=== PATIENT | male | born 1990 | race Caucasian/White ===

== ENCOUNTER 2021-05-17 17:52 | Emergency (ER) | payer OTHER ==
[~2021-05-17] VITALS: Ht 190.5 cm; Wt 106.1 kg
[2021-05-17 18:24] VITALS: BP 150/89
--- NOTE | 2021-05-17 19:04 | NUR ---
PT'S RIGHT PINKY TOE ISABEL TAPPED AND PT RIGHT FOOT PLACED IN ORTHO SHOE. PA NOTIFIED
[2021-05-17] MEDS ORDERED: IBUP-2213 PO (19:06)
[2021-05-17] MEDS ORDERED: BACI1PAC6 TP (19:08)
[2021-05-17] MEDS ORDERED: IBUPROFEN 600 MG TAB PO ONE (19:10)
--- NOTE | 2021-05-17 19:36 | NUR ---
Patient discharged with v/s stable. Written and verbal after care instructions given and explained. Patient alert, oriented and verbalized understanding of instructions. Ambulatory with steady gait. All questions addressed prior to discharge. ID band removed. Patient advised to follow up with PMD. Rx of BACITRACIN, MOTRIN given. Patient educated on indication of medication including possible reaction and side effects. Opportunity to ask questions provided and answered.
== END 2021-05-17 19:36 | disposition home or self-care (01) ==
LOC: MED 17:52
DX: S92.514A Nondisplaced fracture of proximal phalanx of right lesser toe(s), initial encounter for closed fracture (principal); W51.XXXA Accidental striking against or bumped into by another person, initial encounter; Y93.89 Activity, other specified; Y92.89 Other specified places as the place of occurrence of the external cause; Y99.8 Other external cause status
CPT/HCPCS: 73630; 99283